=== PATIENT | female | born 1970 | race African-American/Black ===

== ENCOUNTER 2020-07-12 10:57 | Emergency (ER) | payer OTHER ==
[~2020-07-12] VITALS: Ht 175.3 cm; Wt 118.2 kg
[2020-07-12 11:00] VITALS: TEMP 97.6
[2020-07-12] MEDS ORDERED: PRINZIDE 12.5 M1 TA1 PO (11:15)
[2020-07-12 11:54] LABS: BASO % 0.5 % (0.0-2.0); EOS % 0.7 % (0-4.0); GRAN # 3.7 (1.4-6.5); GRAN % 65.3 % (42.2-75.2); HEMATOCRIT 41.9 % (37.0-47.0); HEMOGLOBIN 14.1 g/dl (12.5-16.0); LYMPH # 1.5 (1.2-3.4); LYMPH % 26.9 % (20.0-51.0); MEAN CELL VOLUME 79 fl (80.0-100.0); MEAN CORPUSCULAR HEMOGLOBIN 27 pg (27.0-31.0); MEAN CORPUSCULAR HGB CONC 34 g/dl (33.0-37.0); MEAN PLATELET VOLUME 11.4 fl (7.4-10.4); MONO # 0.4 (0.1-0.6); MONO % 6.3 % (1.7-9.3); PLATELET COUNT 181 K/mm3 (130-400); RED BLOOD COUNT 5.32 M/mm3 (4.10-5.30); REDCELL DISTRIBUTION WIDTH-CV 13.6 % (11.5-14.5)
[2020-07-12 11:57] LABS: ALBUMIN 4.7 gm/dL (3.5-5.0); BILIRUBIN,TOTAL 0.9 mg/dL (0.0-1.0); CALCIUM 9.5 mg/dL (8.4-10.2); CREATININE, serum 0.86 (0.52-1.25); POTASSIUM 3.3 mmol/L (3.4-5.0)
[2020-07-12] MEDS ORDERED: NORVASC 5MG5 MG/TAB PO (12:53)
[2020-07-12] MEDS ORDERED: HCTZ 25MG TAB25 MG PO (12:53)
[2020-07-12 13:12] VITALS: BP 176/109; PULSE 69
== END 2020-07-12 13:18 | disposition home or self-care (01) ==
LOC: COL.ER 10:57
PROVIDERS: Family Medicine
DX: I10 Essential (primary) hypertension (principal)

== ENCOUNTER → 2020-07-21 | Outpatient (CLI) | payer OTHER ==
[~2020-07-21] MED LIST: HCTZ 25MG TAB25 MG PO; NORVASC 5MG5 MG/TAB PO; PRINZIDE 12.5 M1 TA1 PO
== END ==
LOC: MC.RAD 10:49
DX: Z12.31 Encounter for screening mammogram for malignant neoplasm of breast (principal)